=== PATIENT | female | born 1960 | race Caucasian/White ===

== ENCOUNTER 2021-05-24 06:59 | Day surgery (SDC) | payer BC, SELFPAY ==
[~2021-05-24] VITALS: Ht 157.5 cm; Wt 90.7 kg
[2021-05-24] MEDS ORDERED: CEFAZOLIN SOD 2 GM in D5W 50 ML IV ONE (07:00)
[2021-05-24] MEDS ORDERED: ONDANSETRON HCL 4 MG/2 ML VIAL IVP PRN (10:00)
[2021-05-24] MEDS ORDERED: HYDROmorphone 2 MG/ML VIAL IVP PRN (10:00)
[2021-05-24] MEDS ORDERED: HYDROmorphone 1 MG/ML INJ. CARTRIDGE IVP PRN ×2 (10:00→13:00)
[2021-05-24] MEDS ORDERED: LR 1,000 ML IV SCH (10:00)
[2021-05-24] MEDS ORDERED: DEXAMETHASONE SOD PHOSPHATE 4 MG/ML VIAL ONE (11:46)
[2021-05-24] MEDS ORDERED: PROPOFOL 200MG/ 20ML VIAL (DIPRIVAN) IV ONE (11:46)
[2021-05-24] MEDS ORDERED: WATER FOR IRRIGATION,STERILE 1,000 ML IRRIG.SOLN IR ONE (11:46)
[2021-05-24] MEDS ORDERED: DESFLURANE 15 MIN GAS INH ONE (11:46)
[2021-05-24] MEDS ORDERED: fentaNYL CITRATE/PF 100 MCG/2 ML AMP ONE (11:46)
[2021-05-24] MEDS ORDERED: ONDANSETRON HCL 4 MG/2 ML VIAL ONE (11:46)
[2021-05-24] MEDS ORDERED: NS 1000 ML IV.SOLN IV ONE (11:46)
[2021-05-24] MEDS ORDERED: METOCLOPRAMIDE HCL 10 MG/2 ML VIAL ONE (11:46)
[2021-05-24] MEDS ORDERED: BUPIVACAINE /PF 0.25% 30 ML VIAL INJ ONE (11:46)
[2021-05-24] MEDS ORDERED: LR 1,000 ML IV.SOLN IV ONE (11:46)
[2021-05-24] MEDS ORDERED: FUROSEMIDE 20 MG/2 ML VIAL ONE (11:46)
[2021-05-24] MEDS ORDERED: ROPIVACAINE 40 MG/20 ML AMP EP ONE (11:46)
[2021-05-24] MEDS ORDERED: SUGAMMADEX SODIUM 200 MG/2 ML VIAL IV ONE (11:46)
[2021-05-24] MEDS ORDERED: HYDROmorphone 2 MG/ML VIAL ONE (11:46)
[2021-05-24] MEDS ORDERED: NS IRRIG SOLN 1000 ML IR ONE (11:46)
[2021-05-24] MEDS ORDERED: ACETAMINOPHEN I.V. 1000 MG 100 ML IV ONE (11:48)
[2021-05-24] MEDS: HYDROmorphone 1 MG/ML INJ. CARTRIDGE IVP PRN ×3 (11:55→15:31)
[2021-05-24] MEDS ORDERED: HYDROmorphone 1 MG/ML INJ. CARTRIDGE ONE ×2 (11:57→12:56)
[2021-05-24] MEDS ORDERED: OXYCODONE/ACETAMINOPHEN 5-325 TABLET PO PRN ×2 (13:00)
[2021-05-24 13:15] VITALS: BP_SYST 163
[2021-05-24 13:25] VITALS: BP_SYST 163
[2021-05-24] MEDS: SIMETHICONE 80 MG TAB.CHEW PO SCH ×3 (14:42→20:58)
[2021-05-24] MEDS ORDERED: ASA81 PO (16:54)
[2021-05-24] MEDS ORDERED: VITD2000 PO (16:54)
[2021-05-24] MEDS ORDERED: MULT-1117 PO (16:54)
[2021-05-24] MEDS: ONDANSETRON HCL 4 MG/2 ML VIAL IVP PRN ×2 (17:45→22:32)
[2021-05-25 00:21] VITALS: BP_SYST 134
[2021-05-25] MEDS: HYDROcodone/ACETAMIN 5-325 MG TAB (NORCO/ VICODIN) PO PRN ×3 (02:36→12:44)
[2021-05-25] MEDS: ONDANSETRON HCL 4 MG/2 ML VIAL IVP PRN ×3 (02:39→12:43)
[2021-05-25] MEDS: SIMETHICONE 80 MG TAB.CHEW PO SCH (07:44)
[2021-05-25 08:00] VITALS: BP_SYST 128
[2021-05-25] MEDS ORDERED: SIMETHICONE 80 MG TAB.CHEW PO SCH (13:00)
[2021-05-25 15:26] VITALS: BP_SYST 143
[2021-05-25 16:29] VITALS: BP_SYST 143
== END 2021-05-25 17:00 | disposition home or self-care (01) ==
LOC: SDS 06:59 → SMU 07:00 → SDS 07:00 → SMU 08:00 → EDSTATUS 09:00 → SMU 13:45 → SDS 05-25 17:00
PROVIDERS: ATTEND Specialist
DX: N95.0 Postmenopausal bleeding (principal); N85.00 Endometrial hyperplasia, unspecified; E66.9 Obesity, unspecified; N85.02 Endometrial intraepithelial neoplasia [EIN]; R93.89 Abnormal findings on diagnostic imaging of other specified body structures; I10 Essential (primary) hypertension; Z79.899 Other long term (current) drug therapy; Z20.822 Contact with and (suspected) exposure to COVID-19
CPT/HCPCS: 58571; 64488; 71046; 87081; 88309; 88341; 88342; C1727; C9399; J0131; J0690; J1100; J1170 ×2; J1940; J2405 ×2; J2704; J2765; J2795; J3010; J3490; J7030; J7060; J7120; U0003; 88307; E0190